=== PATIENT | male | born 1975 ===

== ENCOUNTER 2018-01-02 18:06 | Emergency (ER) | payer OTHER ==
[2018-01-02 18:18] VITALS: BP 105/69; PULSE 80; RESP 16; TEMP 98.9; O2SAT 100
[2018-01-02] MEDS ORDERED: Sodium Chloride 0.9% 1,000 ML IV STA (18:54)
--- NOTE | 2018-01-02 18:56 | ED PDOC ---
HPI: Abdomen Time Seen by Provider: 01/02/18 18:54 Chief Complaint (Nursing): Abdominal Pain Chief Complaint (Provider): VOMITING History Per: Patient (42 Y/O MALE HERE WITH VOMITING TODAY MULTIPLE EPISODES X 8 TODAY. NOTES HE RECENTLY HAD COUGH TREATED WITH ZITHROMAX (FINISHED 7 DAYS AGO). HAS HAD ONGOING COUGH STILL. DRANK ALCOHOL YESTERDAY AT DINNER. DENIES ANY DIARRHEA/FEVERS/CHILLS TODAY.) Past Medical History Reviewed: Historical Data, Nursing Documentation, Vital Signs Vital Signs: Last Vital Signs Temp 98.9 F 01/02/18 18:16 Pulse 80 01/02/18 18:16 Resp 16 01/02/18 18:16 BP 105/69 01/02/18 18:16 Pulse Ox 100 01/02/18 19:05 - Family History Family History: States: No Known Family Hx - Allergies Allergies/Adverse Reactions: Allergies Allergy/AdvReac Type Severity Reaction Status Date / Time No Known Allergies Allergy Verified 01/02/18 18:16 Review of Systems ROS Statement: Except As Marked, All Systems Reviewed And Found Negative Physical Exam - Reviewed Nursing Documentation Reviewed: Yes Vital Signs Reviewed: Yes - Physical Exam Appears: Positive for: Well, Non-toxic, No Acute Distress Head Exam: Positive for: ATRAUMATIC, NORMAL INSPECTION, NORMOCEPHALIC Skin: Positive for: Normal Color, Warm, DRY Eye Exam: Positive for: EOMI, Normal appearance, PERRL ENT: Positive for: Normal ENT Inspection Neck: Positive for: Normal, Painless ROM Cardiovascular/Chest: Positive for: Regular Rate, Rhythm Respiratory: Positive for: CNT, Normal Breath Sounds Gastrointestinal/Abdominal: Positive for: Normal Exam, Soft Back: Positive for: Normal Inspection Extremity: Positive for: Normal ROM Neurologic/Psych: Positive for: Alert, Oriented - Laboratory Results Result Diagrams: 01/02/18 18:50 - ECG ECG Rhythm: Positive for: Sinus Rhythm (NSR 92BPM; NO ECTOPY; NO ACUTE CHANGES) O2 Sat by Pulse Oximetry: 100 - Progress ED Course And Treament: ZOFRAN 4 MG IV X 1 DOSE PEPCID 20 MG IV X 1 DOSE NS 1 LITER WIDE OPEN EKG: NSR 92BPM; NO ECTOPY ;NO ACUTE CHANGES CXR: NAD Disposition - Clinical Impression Clinical Impression: Vomiting - Patient ED Disposition Is Patient to be Admitted: Transfer of Care - Disposition Disposition: Transfer of Care Disposition Time: 20:00 Condition: FAIR Forms: [facility] (Cymro) Patient Signed Over To: Jamarcus Martin Handoff Comments: PENDING LABS/RE-EVAL
[2018-01-02 19:18] LABS: BASO % 0.1 % (0.0-2.0); EOS # 0.1 K/uL (0.0-0.7); EOS % 0.8 % (0.0-4.0); HEMOGLOBIN 15.8 g/dL (12.0-18.0); LYMPH # 0.4 K/uL (1.0-4.3); MEAN CELL VOLUME 89.5 fl (80.0-94.0); MEAN CORPUSCULAR HEMOGLOBIN 30.7 pg (27.0-31.0); MEAN CORPUSCULAR HGB CONC 34.3 g/dL (33.0-37.0); MEAN PLATELET VOLUME 8.6 fl (7.2-11.7); MONO # 0.4 K/uL (0.0-0.8); MONO % 3.1 % (0.0-10.0); NEUT # 11.1 K/uL (1.8-7.0); PLATELET COUNT 208 K/uL (130-400); RBC 5.16 Mil/uL (4.40-5.90); RED CELL DISTRIBUTION WIDTH 13.3 % (11.5-14.5); WHITE BLOOD COUNT 11.9 K/uL (4.8-10.8)
[2018-01-02 20:16] LABS: EOSINOPHIL 1 % (0-7); LYMPHOCYTE 2 % (20-50); MONOCYTE 2 % (0-10); NEUTROPHIL 95 % (42-75); PLATELET ESTIMATE NORMAL (NORMAL); TOTAL CELLS COUNTED 100
--- NOTE | 2018-01-02 20:56 | ED PDOC ---
- Laboratory Results Result Diagrams: 01/02/18 18:50 - ECG O2 Sat by Pulse Oximetry: 100 Medical Decision Making Medical Decision Making: Pt has mildly elevated white count; upon successful PO challenge, pt will be d/ c on metrodiaz with instructions to follow up with PMD in 24-48 hours Disposition Doctor Will See Patient In The: Office Counseled Patient/Family Regarding: Studies Performed, Diagnosis, Need For Followup - Clinical Impression Clinical Impression: Vomiting - POA Present On Arrival: None - Disposition Disposition: Routine/Home Disposition Time: 20:57 Condition: GOOD Prescriptions: Metronidazole 500 mg PO TID #21 tablet Ondansetron ODT [Zofran ODT] 4 mg PO PRN PRN #4 odt PRN Reason: Nausea/Vomiting Instructions: Nausea and Vomiting, Adult (DC), Nausea and Vomiting, Adult Forms: [facility] (Serbian), [facility] ED School/Work Excuse
--- NOTE | 2018-01-03 07:41 | RAD ---
PROCEDURE: CHEST RADIOGRAPH, 1 VIEW HISTORY: VOMITING COMPARISON: None available. FINDINGS: LUNGS: No acute infiltrate identified bilaterally. Biapical fibronodular changes are identified with volume loss suggestive of post granulomatous change. PLEURA: No pneumothorax or pleural fluid seen. CARDIOVASCULAR: Normal. OSSEOUS STRUCTURES: No significant abnormalities. VISUALIZED UPPER ABDOMEN: Normal. OTHER FINDINGS: None. 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 No acute infiltrates or cardiovascular changes bilaterally.
--- NOTE | 2018-01-03 11:39 | CARD ---
APPROVED REPORT EKG Measurement Heart [id number] ND [id number] <Conclusion> Normal sinus rhythm Normal ECG
== END 2018-01-02 21:52 | disposition home or self-care (01) ==
LOC: H.ER 18:06
DX: R11.10 Vomiting, unspecified (principal); R05 Cough
CPT/HCPCS: 71045; 82948; 85025; 87804; 93005; 96374; 96375; 99284; J2405; J7040